=== PATIENT | male | born 1985 | race African-American/Black ===

== ENCOUNTER 2019-02-01 08:49 | Emergency (ER) | payer OTHER, SELFPAY ==
[2019-02-01 08:54] VITALS: BP 165/97; PULSE 75; RESP 16; TEMP 36.7; O2SAT 92; BMI 35.9
--- NOTE | 2019-02-01 09:12 | ED.VIS.GEN ---
History of Present Illness Chief Complaint: Lower Extremity Injury Informant: Patient Onset: Today Current Severity: Mild Narrative: Patient presents complaining of right medial tib-fib pain he indicates he was changing a tire of the juliana slipped struck him to this area he has no other complaints is been walking no other past history no other injury Past Medical History - Allergies and Home Meds Allergies/Adverse Reactions: Allergies No Known Allergies Allergy (Verified 02/01/19 08:54) Past Medical History: - Review of Systems ROS: - Denies General: Denies: Chills, Fever, Sweats Eyes: Denies: Visual changes - bilaterally, Diplopia ENT: Denies: Rhinorrhea, Sore throat Cardiovascular: Denies: Chest pain, Palpitations Respiratory: Denies: Dyspnea, Cough, Dyspnea on exertion Gastrointestinal: Denies: Abdominal pain, Nausea, Vomiting, Diarrhea, Melena, Hematochezia Genitourinary: Denies: Dysuria, Hematuria, Frequency Musculoskeletal: Reports: Extremity Pain. Denies: Back pain Skin: Denies: Rash, Wounds Neurological: Denies: Headache, Weakness, Numbness Physical Exam Vital Signs/Narrative: Vital Signs Temp Pulse Resp BP Pulse Ox 02/01/19 08:54 98.1 F 75 16 165/97 H 92 General: Well nourished, Well developed, No Acute Distress Head: Normocephalic, Atraumatic Eyes: Perrl, EOMI ENT: Moist mucous membranes, No rhinorrhea Neck: Supple, Nontender Cardiovascular: Regular rate, Regular rhythm, No murmurs Respiratory: No distress, CTA bilaterally, Chest nontender Abdomen: Soft, Nontender, Nondistended, Normal bowel sounds Back: Nontender, Normal Inspection Extremities: No edema, - - Some mild tenderness to the left lateral mid calf area he has full range of motion of the knee ankle and foot tib-fib's otherwise unremarkable hips unremarkable there is no skin breakdown there is a very minimal very faint contusion Skin: Normal color, No rash Neurological: Alert, Oriented x3, Cranial nerves II-XII grossly intact, Normal Strength, Normal Sensation Psychological: Normal affect, Normal Mood Diagnostic/Tx/Re-eval - Medical Decision Making X-rays obtained Naprosyn for pain
[2019-02-01] MEDS: Naproxen 500 MG Tablet PO (09:54)
--- NOTE | 2019-02-01 10:03 | RAD_ITS ---
STUDY: X-RAY - RIGHT TIBIA AND FIBULA REASON FOR EXAM: Male, 33 years old. Pain following injury. TECHNIQUE: 2 view(s) of the tibia and fibula were obtained. COMPARISON: None. FINDINGS: Normal visualized tibia. Normal visualized fibula. The soft tissue structures are unremarkable. RAD/Tibia & Fibula 2 Views IMPRESSION: Normal x-ray examination of the tibia and fibula. Electronically Signed: Jairo Simms, at 10:27 EDT , Service support ,
--- NOTE | 2019-02-01 10:29 | ED.DEP ---
ED Disposition - Plan for ED Patient: Instructions: CONTUSION, Lower Extremity Prescriptions: Naproxen [Naprosyn] 500 mg PO BID PRN #20 tab Prescription Printed Referrals: Care Physician,No Primary [Primary Care Provider] -
== END 2019-02-01 10:30 | disposition home or self-care (01) ==
PROVIDERS: Emergency Provider Emergency Medicine
DX: S89.91XA Unspecified injury of right lower leg, initial encounter (principal); W22.8XXA Striking against or struck by other objects, initial encounter; Y93.9 Activity, unspecified; Y92.9 Unspecified place or not applicable
CPT/HCPCS: 73590; 99282

== ENCOUNTER 2020-05-03 10:42 | Emergency (ER) | payer SELFPAY ==
[2020-05-03 10:43] VITALS: BP 166/122; PULSE 85; RESP 16; TEMP 36.5; O2SAT 99; BMI 31.1
--- NOTE | 2020-05-03 10:53 | ED.VIS.GEN ---
History of Present Illness Chief Complaint: Dental Informant: Patient Onset: Days - 2 days Context: Gradual Onset Current Severity: Moderate Maximum Severity: Moderate Narrative: Patient presents with 2-day history of left lower dental pain. He states he really started developing pain along his jawline and now has pain in his tooth as well. No fevers or chills. He does have a bad taste in his mouth. Past Medical History - Allergies and Home Meds Allergies/Adverse Reactions: Allergies No Known Allergies Allergy (Verified 02/01/19 08:54) Primary Care Physician: Care Physician,No Primary [Primary Care Provider] - Past Medical History: None Smoking Status: Current every day smoker Review of Systems General: Denies: Chills, Fever Eyes: Denies: Visual changes - bilaterally ENT: Reports: - - Left-sided dental pain. Denies: Bilateral ear pain Cardiovascular: Denies: Chest pain Respiratory: Denies: Dyspnea Gastrointestinal: Denies: Abdominal pain, Vomiting, Diarrhea Musculoskeletal: Denies: Swelling, Extremity Pain Skin: Denies: Rash Neurological: Denies: Headache Hematologic: Denies: Easy bruising, Easy bleeding Allergy: Denies: Uticaria Physical Exam Vital Signs/Narrative: Vital Signs Temp Pulse Resp BP Pulse Ox 05/03/20 10:43 97.7 F L 85 16 166/122 H 99 Inital Vital Signs reviewed: Yes General: Well nourished, Well developed Head: Normocephalic Eyes: Perrl, EOMI ENT: Moist mucous membranes, - - Left third mandibular molar has a fracture off the medial posterior surface. This area is tender to palpation. Minimal gum edema. No trismus. Patient speaks with a strong voice and tolerate secretions well. No facial edema or erythema. Neck: Supple, Nontender Cardiovascular: Regular rate, Regular rhythm, No murmurs Respiratory: No distress, CTA bilaterally Abdomen: Soft, Nontender Back: Nontender Extremities: Nontender Skin: Normal color Neurological: Alert, Oriented x3 Psychological: Normal affect Diagnostic/Tx/Re-eval - Medical Decision Making Patient will be treated with naproxen and Pen-Vee K. First doses are given here. Dental referral list is also given. ED Disposition - Plan for ED Patient: Disposition: Home or Assisted Living Diagnosis: Dental infection Instructions: ED Dental Abscess Prescriptions: Naproxen [Naprosyn] 500 mg PO BID PRN PRN #20 tab PRN Reason: Pain Score 4-10 Transmission Status: Pending to [facility] Penicillin V Potassium 500 mg PO 4X/DAY #40 tab Transmission Status: Pending to [facility] Additional Instructions: Dental referral list provided.
[2020-05-03] MEDS: Naproxen 500 MG Tablet PO (11:13)
[2020-05-03] MEDS: Penicillin Vk 250 MG Tablet 500 MG PO (11:13)
== END 2020-05-03 11:15 | disposition home or self-care (01) ==
LOC: ED 11:05
PROVIDERS: Emergency Provider Emergency Medicine
DX: K04.7 Periapical abscess without sinus (principal); K08.89 Other specified disorders of teeth and supporting structures; F17.200 Nicotine dependence, unspecified, uncomplicated; Z79.899 Other long term (current) drug therapy
CPT/HCPCS: 99283

== ENCOUNTER 2021-10-21 09:48 | Emergency (ER) | payer MEDICAID, SELFPAY ==
[2021-10-21 09:48] VITALS: BP 193/121; PULSE 81; RESP 16; TEMP 36.4; O2SAT 100; BMI 31.6
--- NOTE | 2021-10-21 09:58 | ED.VIS.DENTA ---
HPI History of Present Illness Chief Complaint: Dental Informant: patient Narrative Narrative: 36-year-old male presenting with dental pain. Patient states this started yesterday. He complains of left lower dental pain and swelling. Denies difficulty swallowing. Denies fever. He does not currently have a dentist. PFSH PFSH Medical History no medical history no medical history Home Medications naproxen 500 mg tablet 500 mg PO BID PRN #20 tabs 02/01/19 [Rx Last Taken Unknown] naproxen 500 mg tablet 500 mg PO BID PRN PRN Pain Score 4-10 #20 tabs 05/03/20 [Rx Last Taken Unknown] penicillin V potassium 500 mg tablet 500 mg PO 4X/DAY #40 tabs 05/03/20 [Rx Last Taken Unknown] naproxen 500 mg tablet 500 mg PO BID PRN #20 tabs 10/21/21 [Rx Last Taken Unknown] penicillin V potassium 500 mg tablet 500 mg PO 4X/DAY #40 tabs 10/21/21 [Rx Last Taken Unknown] Allergy/AdvReac Type Severity Reaction Status Date / Time No Known Allergies Allergy Verified 10/21/21 09:50 Social History Smoking Status: Current every day smoker ROS ROS ED Constitutional Constitutional ED: Denies fever(s) ENT ENT ED: Reports other Details: dental pain Cardiovascular Cardiovascular: Denies chest pain Respiratory/Chest Respiratory/Chest: Denies dyspnea Integumentary Denies rash Allergic/Immunologic Allergic/Immunologic ED: Denies tongue swelling EXAM Physical Exam Const Vital Signs: 10/21/21 09:48 Temperature 97.6 F L Temperature Source Temporal Pulse Rate 81 Respiratory Rate 16 Blood Pressure 193/121 H Blood Pressure Mean 145 Pulse Ox 100 Oxygen Delivery Method Room Air Positive well nourished and well developed General Appearance ED: well developed HEENT HEENT Narrative: Left lower molar tenderness with no surrounding fluctuance. No sublingual edema. Resp normal respiratory effort Cardio regular rate and regular rhythm Neuro oriented x3 Psych mental status grossly normal MDM MDM MDM Narrative Medical decision making narrative: Patient was given penicillin and naproxen. His blood pressure is elevated. Repeat is improved. He is advised to follow-up with primary care physician and dentist. He is given referral to Dr. Patricia. Advised return to ED for worsening complaints. Discharge Plan Triage Chief Complaint: Dental ED Provider: Slime Rosales Dx/Rx/DC Orders Clinical Impression: Pain, dental Instructions: ED Dental Pain Prescriptions: New naproxen 500 mg tablet 500 mg PO BID PRN Qty: 20 0RF penicillin V potassium 500 mg tablet 500 mg PO 4X/DAY Qty: 40 0RF No Action naproxen 500 MG tablet 500 mg PO BID PRN Qty: 20 0RF naproxen 500 MG tablet 500 mg PO BID PRN PRN (Reason: Pain Score 4-10) Qty: 20 0RF penicillin V potassium 500 MG tablet 500 mg PO 4X/DAY Qty: 40 0RF Primary Care Provider: Care Physician,No Primary Referrals: Ashleigh Patricia MD [STAFF PHYSICIAN] - Care Physician,No Primary [Primary Care Provider] - Disposition Disposition: Home, Self Care
[2021-10-21 10:19] VITALS: BP 171/115
[2021-10-21] MEDS: Penicillin Vk 250 MG Tablet 500 MG PO (10:19)
[2021-10-21 10:25] VITALS: RESP 18
== END 2021-10-21 10:26 | disposition home or self-care (01) ==
LOC: ED 10:18
PROVIDERS: Emergency Provider Emergency Medicine; Visit Provider Emergency Medicine
DX: K08.89 Other specified disorders of teeth and supporting structures (principal); R03.0 Elevated blood-pressure reading, without diagnosis of hypertension; F17.200 Nicotine dependence, unspecified, uncomplicated; Z79.1 Long term (current) use of non-steroidal anti-inflammatories (NSAID); Z79.899 Other long term (current) drug therapy
CPT/HCPCS: 99283

== ENCOUNTER 2021-10-22 13:09 | Emergency (ER) | payer MEDICAID, SELFPAY ==
[2021-10-22 13:10] VITALS: BP 208/144; PULSE 64; RESP 51; TEMP 36.8; O2SAT 100; BMI 31.6
[2021-10-22 13:13] VITALS: BP 208/144; PULSE 64; RESP 51; TEMP 36.8; O2SAT 100
--- NOTE | 2021-10-22 13:43 | EKG12_ITS ---
Test Reason : Blood Pressure : / mmHG Vent. Rate : 068 BPM Atrial Rate : 068 BPM P-R Int : 182 ms QRS Dur : 070 ms QT Int : 366 ms P-R-T Axes : 012 010 007 degrees QTc Int : 389 ms Normal sinus rhythm Nonspecific T wave abnormality Confirmed by VINCE MAZARIEGOS, HERI ([id number]), acquisitions editor PAIGE RUDOLPH ([id number]) on 10/24/2021 9:29:28 AM Referred By: Confirmed By:HERI CLARKE MD
--- NOTE | 2021-10-22 13:44 | EDS_ITS ---
HPI History of Present Illness Chief Complaint: Nausea/Vomiting Informant: patient and spouse/S.O. Narrative Narrative: 36-year-old male presenting to the emergency department with hypertension and vomiting. Patient states he was seen here yesterday for a dental infection started on penicillin. When he woke this morning he was vomiting and his blood pressure was in the 170 systolic range. He states that he was told yesterday to monitor his blood pressure and he plans on establishing a primary care doctor in the next couple weeks. He took his blood pressure again and it was higher so he decided to come to emergency. He denies any diarrhea fever chills sore throat headache chest pains or dyspnea. He states he feels fatigued. PFSH PFSH Medical History Alcohol abuse Hypertension Smoker Home Medications naproxen 500 mg tablet 500 mg PO BID PRN #20 tabs 02/01/19 [Rx Last Taken Unknown] penicillin V potassium 500 mg tablet 500 mg PO 4X/DAY #40 tabs 05/03/20 [Rx Last Taken Unknown] amlodipine 5 mg tablet 5 mg PO DAILY #30 tabs 10/22/21 [Rx Last Taken Unknown] lisinopril 10 mg tablet 10 mg PO DAILY #30 tabs 10/22/21 [Rx Last Taken Unknown] metoclopramide HCl 10 mg tablet (Reglan) 10 mg PO Q6H PRN nausea and vomiting #20 tabs 10/22/21 [Rx Last Taken Unknown] ondansetron 4 mg disintegrating tablet 4 mg PO Q6H PRN PRN Nausea #20 tabs 10/22/21 [Rx Last Taken Unknown] Allergy/AdvReac Type Severity Reaction Status Date / Time No Known Allergies Allergy Verified 10/21/21 09:50 Social History (Updated 10/22/21 @ 13:[address] Zackary Chaves, DO) Smoking Status: Heavy Smoker (>10/day) substance use type: does not use ROS ROS ED Constitutional Constitutional ED: Denies chills or weight loss Eyes Eyes: Denies change in vision or diplopia ENT ENT ED: Denies ear pain, rhinorrhea or sore throat Cardiovascular Cardiovascular: Denies chest pain, orthopnea, palpitations or racing heartbeat Respiratory/Chest Respiratory/Chest: Denies cough, dyspnea or orthopnea Gastrointestinal Gastrointestinal: Reports nausea and vomiting; Denies abdominal pain or diarrhea Genitourinary Genitourinary ED: Denies dysuria, hematuria or urinary frequency Musculoskeletal Musculoskeletal: Denies arthralgias or myalgias Integumentary Denies abscess or rash Neurologic Neurologic: Denies headache(s) or weakness Psychiatric Psychiatric: Denies anxiety, depression, suicidal ideation or suicidal thoughts Endocrine Endocrinology: Denies polydipsia, polyphagia or polyuria Allergic/Immunologic Allergic/Immunologic ED: Denies mouth swelling, tongue swelling or urticaria EXAM Physical Exam Const Vital Signs: 10/22/21 13:10 10/22/21 13:13 10/22/21 14:44 Temperature 98.2 F 98.2 F 97.5 F L Temperature Source Temporal Temporal Temporal Pulse Rate 64 64 70 Respiratory Rate 51 H 51 H 11 L Blood Pressure 208/144 H 208/144 H 216/141 H Blood Pressure Mean 165 165 166 Pulse Ox 100 100 100 Oxygen Delivery Method Room Air Room Air Room Air 10/22/21 14:44 10/22/21 16:07 Temperature Temperature Source Pulse Rate 79 100 Respiratory Rate 11 L 14 Blood Pressure 216/141 H 212/120 H Blood Pressure Mean 166 150 Pulse Ox 100 100 Oxygen Delivery Method Room Air Room Air Positive well nourished and well developed General Appearance ED: well developed HEENT Reports normocephalic, head/scalp atraumatic and moist mucous membranes Eyes PERRL and EOMs intact bilaterally Neck no lymphadenopathy, supple and no JVD Resp normal respiratory effort and clear to auscultation bilaterally Cardio regular rate, regular rhythm and no murmurs GI normal to inspection, nondistended, normoactive bowel sounds and non-tender Palpation: soft Back/Spine no CVA tenderness and normal ROM Extremity normal to inspection General Extremety ED: Negative for edema General Extremity: Negative for edema Neuro oriented x3 and CN's II-XII intact bilaterally Sensorium / Orientation: alert Motor Exam: strength 5/5 throughout Psych mental status grossly normal Mood & Affect: Negative for depressed or tearful Skin no rashes or lesions noted and no wounds MDM MDM MDM Narrative Medical decision making narrative: Patient received Zofran amlodipine and lisinopril. Unfortunately the patient vomited again. He received additional Zofran and we administered hydralazine IV. My interpretation of the chest x-ray is normal mediastinal silhouette. CBC CMP lipase and troponin are all within normal limits. Glucose noted to be 115. CT of the brain was negative. Patient received an additional dose of hydralazine. We have reduced his blood pressure about 22%. He is feeling better. We talked about staying here in the hospital. He would prefer to go home. Some of this has to do with his daily alcohol consumption. He is not interested in any rehab at this time. He is nervous about having withdrawal symptoms and I think that this is a reasonable concern. Since he does not wish rehab I will help him out at home with nausea medication and also going to start him on amlodipine and lisinopril. Return if worsening or concerns. Lab Data Attestation: I reviewed the patient's lab results. Labs: Laboratory Results - last 24 hr 10/22/21 10/22/21 10/22/21 13:55 13:55 15:18 WBC 7.9 RBC 4.64 Hgb 14.6 Hct 42.7 MCV 92.0 MCH 31.5 MCHC 34.2 RDW Std Deviation 44.9 H RDW Coeff of Fco 13.2 Plt Count 242 MPV 10.1 Immature Gran % (Auto) 0.500 Neut % (Auto) 72.8 H Lymph % (Auto) 19.6 Pepin % (Auto) 6.0 Eos % (Auto) 0.5 Baso % (Auto) 0.6 Absolute Neuts (auto) 5.8 Absolute Lymphs (auto) 1.56 Nucleated RBC % 0 Sodium 140 Potassium 4.0 Chloride 106 Carbon Dioxide 29.0 Anion Gap 5 BUN 8 Creatinine 1.22 Estim Creat Clear Calc 95.51 Est GFR (MDRD) Af Amer 87 Est GFR (MDRD) Non-Af 72 BUN/Creatinine Ratio 6.6 L Glucose 115 H Calcium 8.9 Total Bilirubin 0.50 AST 16 ALT 41 Alkaline Phosphatase 54 Troponin I High Sens 5 Total Protein 7.3 Albumin 3.9 Globulin 3.4 Albumin/Globulin Ratio 1.1 Lipase 56 L Urine Color Yellow Urine Clarity Clear Urine pH 6.0 Ur Specific [place] 1.020 Urine Protein 100 H Urine Glucose (UA) Normal Urine Ketones 5 H Urine Occult Blood 250 H Urine Nitrite Negative Urine Bilirubin Negative Urine Urobilinogen 1 H Ur Leukocyte Esterase 25 H Urine RBC 25-50 SEEN Urine WBC 0-5 SEEN Ur Squamous Epith Cells 5-10 SEEN Urine Bacteria 1+ Urine Mucus 1+ Radiography Diagnostic Testing: Clinical Impression(s) from Imaging Studies Chest X-Ray 10/22/21 13:51 IMPRESSION: Normal x-ray examination of the chest. Electronically Signed: Jairo Simms MD at 14:25 EDT , Brain CT 10/22/21 15:22 IMPRESSION: Normal unenhanced CT scan of the brain. Electronically Signed: Jairo Simms MD at 15:37 EDT , EKG Initial EKG: Attestation: I personally reviewed and interpreted this EKG as follows: Comments: Normal sinus rhythm with a ventricular rate of 68 bpm Discharge Plan Triage Chief Complaint: Nausea/Vomiting ED Provider: Zackary Chaves Dx/Rx/DC Orders Clinical Impression: Hypertensive urgency, Vomiting Instructions: ED High Blood Pressure Hypertension Prescriptions: New ondansetron [ondansetron] 4 mg tablet,disintegrating 4 mg PO Q6H PRN PRN (Reason: Nausea) Qty: 20 0RF amlodipine 5 mg tablet 5 mg PO DAILY Qty: 30 0RF lisinopril 10 mg tablet 10 mg PO DAILY Qty: 30 0RF metoclopramide HCl [Reglan] 10 mg tablet 10 mg PO Q6H PRN (Reason: nausea and vomiting) Qty: 20 0RF No Action naproxen 500 MG tablet 500 mg PO BID PRN Qty: 20 0RF penicillin V potassium 500 MG tablet 500 mg PO 4X/DAY Qty: 40 0RF Primary Care Provider: Care Physician,No Primary Referrals: Kiley Bradshaw MD [STAFF PHYSICIAN] - As soon as possible (for primary care or the PCP of your choice) Care Physician,No Primary [Primary Care Provider] - Disposition Disposition: Home, Self Care
--- NOTE | 2021-10-22 13:51 | RAD_ITS ---
STUDY: X-RAY CHEST REASON FOR EXAM: Male, 36 years old. Hypertension TECHNIQUE: Single AP portable view of the chest. COMPARISON: None. FINDINGS: EKG electrodes are seen. The lungs are clear and expanded. There is no demonstrated pleural abnormality. Normal size heart. Normal mediastinum and danie. Normal visualized pulmonary arteries. Normal visualized aortic arch and descending thoracic aorta. Normal visualized thoracic spine. Normal visualized ribs, clavicles, and shoulders. There is no demonstrated abnormality of the visualized soft tissue structures of the upper abdomen. RAD/Chest 1 View (Portable) IMPRESSION: Normal x-ray examination of the chest. Electronically Signed: Jairo Simms MD at 14:25 EDT ,
[2021-10-22] MEDS: Ondansetron 4 MG/2 ML Vial IV ×2 (13:55→14:44)
[2021-10-22] MEDS: amLODIPine 5 MG Tablet PO (13:55)
[2021-10-22] MEDS: Lisinopril 5 MG Tablet PO (14:02)
[2021-10-22 14:12] LABS: Absolute Lymphocyte Count 1.56 X10^3/uL (0.83-4.51); Absolute Neutrophil Count 5.8 X10^3/uL (2.0-7.7); Basophil# 0.05 X10^3/uL; Basophil% 0.6 % (0-1); Eosinophil# 0.04 X10^3/uL; Eosinophils% 0.5 % (0-5); Hematocrit 42.7 % (40-54); Hemoglobin 14.6 g/dL (13.0-16.5); Lymphocyte # 1.56 X10^3/ul (0.83-4.51); Lymphocyte % 19.6 % (19-41); Mean Corp Hgb Conc 34.2 g/dL (32-36); Mean Corpuscular Hgb 31.5 pg (27.0-32.0); Mean Platelet Vol. 10.1 fl (6.2-12.0); Monocyte# 0.48 X10^3/uL; NRBC Flagged by Analyzer 0 % (0-5); Neutrophil # 5.77 X10^3/uL (2.7-7.7); Neutrophil % 72.8 % (47-70); Platelet Count 242 K/mm3 (150-450); RBC Distribution Width CV 13.2 % (11.6-14.6); RBC Distribution Width SD 44.9 fl (35.1-43.9); Red Blood Count 4.64 M/mm3 (4.6-6.2); White Blood Count 7.9 K/mm3 (4.4-11.0)
[2021-10-22 14:31] LABS: ALB/GLOB Ratio 1.1 RATIO (0.9-2.4); AST(SGOT) 16 U/L (15-37); Alanine Aminotransfer ALT/SGPT 41 U/L (16-61); Albumin, Serum 3.9 g/dL (3.2-5.0); Alkaline Phosphatase 54 U/L (45-117); Anion Gap 5 (5-15); BUN 8 mg/dL (7-18); BUN/Creat Ratio 6.6 RATIO (10-20); Calcium,Total 8.9 mg/dL (8.5-10.1); Chloride 106 mmol/L (98-107); Creatinine, Serum 1.22 mg/dL (0.70-1.30); EST Glomerular Filtration Rate 72 mL/min (>60); Est Glom Filt Rate - Afr Amer 87 mL/min (>60); Estimated Creatinine Clearance 95.51 ml/min; Globulin 3.4 g/dL (2.2-4.2); Glucose 115 mg/dL (74-106); Lipase 56 U/L (73-393); Protein, Total 7.3 g/dL (6.4-8.2); Sodium Level 140 mmol/L (136-145); Troponin-I HS 5 pg/mL (3.0-78.0)
[2021-10-22 14:44] VITALS: BP 216/141; PULSE 70; PULSE 79; RESP 11; TEMP 36.4; O2SAT 100
[2021-10-22] MEDS: hydrALAZINE 20 MG/ML Vial 10 MG IV ×2 (14:50→16:11)
--- NOTE | 2021-10-22 15:22 | CT_ITS ---
STUDY: CT BRAIN WITHOUT CONTRAST REASON FOR EXAM: Male, 36 years old. Hypertensive urgency RADIATION DOSAGE (If Supplied By Facility): CTDIvol = ( 47.06 ) mGy, DLP = ( 907.97 ) mGycm TECHNIQUE: Transaxial CT imaging of the brain was performed without administration of intravenous contrast material. Individualized dose optimization techniques were used for this CT. COMPARISON: No relevant priors. FINDINGS: Normal soft tissue structures. Normal calvarium. Normal size ventricles and extra-axial spaces for the patient''s age. Normal white matter tracts of the cerebral hemispheres. Normal basal ganglia and thalami. Normal brainstem. Normal cerebellum. There is no intracranial hemorrhage. There are no findings of an acute ischemic infarction. Normal visualized paranasal sinuses. CT/Brain/Head without Contrast IMPRESSION: Normal unenhanced CT scan of the brain. Electronically Signed: Jairo Simms MD at 15:37 EDT ,
[2021-10-22 15:24] LABS: Color, Urine Yellow (Yellow); Glucose, Dipstick Normal (Normal); Ketone-Dipstick 5 mg/dl (Negative); Leukocyte Esterase-Dipstick 25 /ul (Negative); Nitrite-Dipstick Negative (Negative); Occult Blood-Urine 250 /ul (Negative); Protein-Dipstick 100 mg/dl (Negative); Urine Bilirubin Dipstick Negative (Negative); Urine Clarity Clear (Clear); Urine Urobilinogen 1 mg/dl (Normal)
[2021-10-22] MEDS: DiphenhydrAMINE 50 MG/ML Syringe 25 MG IV (15:40)
[2021-10-22] MEDS: Metoclopramide 10 MG/2 ML Vial IV (15:41)
[2021-10-22 16:07] VITALS: BP 212/120; PULSE 100; RESP 14; O2SAT 100
[2021-10-22 16:13] LABS: White Blood Cells 0-5 SEEN /hpf (0-5)
[2021-10-22 16:14] LABS: Bacteria 1+ /hpf (None Seen); Mucous, Urine 1+ /hpf (<or=2+); Red Blood Cells-Urine 25-50 SEEN /hpf (0-5); Squamous Epithelial Cells - UA 5-10 SEEN /hpf (0-5)
[2021-10-22 17:33] VITALS: RESP 18; O2SAT 99
== END 2021-10-22 17:42 | disposition home or self-care (01) ==
PROVIDERS: Emergency Provider Emergency Medicine; Visit Provider Emergency Medicine
DX: I16.0 Hypertensive urgency (principal); R11.2 Nausea with vomiting, unspecified; I10 Essential (primary) hypertension; F17.200 Nicotine dependence, unspecified, uncomplicated; Z79.1 Long term (current) use of non-steroidal anti-inflammatories (NSAID); Z79.899 Other long term (current) drug therapy
CPT/HCPCS: 70450; 71045; 80053; 81001; 83690; 84484; 85025; 87811; 93005; 96374; 96375; 96376; 99284; A4216; J2405